=== PATIENT | male | born 1990 | race Caucasian/White ===

== ENCOUNTER → 2024-11-09 | Outpatient (CLI) | payer OTHER ==
[2024-11-09 09:56] LABS: BUN 19 mg/dl (9-23)
== END | disposition home or self-care (01) ==
LOC: LAB 08:35
PROVIDERS: ATTEND Internal Medicine
DX: D35.00 Benign neoplasm of unspecified adrenal gland (principal)

== ENCOUNTER 2025-01-27 22:17 | Emergency (ER) | payer OTHER ==
[~2025-01-27] VITALS: Ht 172.7 cm; Wt 108.9 kg
[2025-01-27] MEDS ORDERED: Ondansetron Hydrochloride 4 MG/2 ML VIAL IV ONE (22:50)
[2025-01-27] MEDS ORDERED: SODIUM CHLORIDE 0.9% 1,000 ML IV ONE (22:50)
[2025-01-27] MEDS ORDERED: IOHEXOL 300 MG/ML 100 ML VIAL IV ONE (23:00)
[2025-01-28] MEDS ORDERED: Ondansetron Hydrochloride 4 MG TAB PO ONE (00:25)
[2025-01-28] MEDS ORDERED: IOHEXOL 9 MG/ML (IODINE) ORAL SOLUTION PO ONE (00:30)
[2025-01-28 00:54] LABS: BILIRUBIN Negative (Negative); CLARITY Clear (Clear); COLOR Yellow (Yellow)
[2025-01-28 00:55] LABS: BACTERIA TRACE; BLOOD Trace-Lysed (Negative); KETONE Negative (Negative); LEUKO ESTERASE Negative (Negative); NITRITE Negative (Negative); PH 6.5 (4.5-8.0); SPECIFIC GRAVITY 1.020 (1.001-1.030); UROBILINOGEN 0.2 E.U./dl (0.0-1.0)
== END 2025-01-28 04:03 | disposition home or self-care (01) ==
LOC: ED 22:17
DX: N13.30 Unspecified hydronephrosis (principal); K59.00 Constipation, unspecified; E27.8 Other specified disorders of adrenal gland; I10 Essential (primary) hypertension; Z88.8 Allergy status to other drugs, medicaments and biological substances